=== PATIENT | female | born 1985 | race African-American/Black ===

== ENCOUNTER 2020-11-01 12:04 | Emergency (ER) | payer OTHER ==
[2020-11-01] MEDS ORDERED: CYCLOBENZAPRINE10 MG PO (14:11)
[2020-11-01] MEDS ORDERED: ETODOLAC500 MG PO (14:11)
== END 2020-11-01 14:28 | disposition home or self-care (01) ==
LOC: FER 12:04
DX: M75.101 Unspecified rotator cuff tear or rupture of right shoulder, not specified as traumatic (principal)
CPT/HCPCS: 73030; J1885